=== PATIENT | female | born 1985 | race Caucasian/White ===

== ENCOUNTER 2021-03-29 09:46 | Day surgery (SDC) | payer BC ==
[~2021-03-29] VITALS: Ht 172.7 cm; Wt 56.7 kg
[~2021-03-29 09:46] MED LIST: MIRENA1 EAC1 VAG; PROBIOTIC1 EA13 PO; THERA-D2000 UNIT PO
--- NOTE | 2021-03-29 10:26 | NUR ---
History, Chart, Medications and Allergies reviewed before start of procedure. Lungs clear T/O to Auscultation. Patient confirms NPO status and agrees with scheduled surgery. Pre-Op teaching done. Pt verbalizes understanding.
== END 2021-03-29 23:14 | disposition home or self-care (01) ==
LOC: ORSCMMR 09:46 → ORD 12:30 → ORSCMMR 12:30
PROVIDERS: Obstetrics & Gynecology
PROC: 0UBC7ZX Excision of Cervix, Via Natural or Artificial Opening, Diagnostic (ICD-10-PCS; principal; 2021-03-29 11:30)
DX: D06.0 Carcinoma in situ of endocervix (principal)
CPT/HCPCS: 88305; A9270; J0171; J0690; J1100; J1885; J2405; J2704; J3010; J7120